=== PATIENT | female | born 1990 | race Two or more races ===

== ENCOUNTER 2023-12-22 20:20 | Outpatient (REF) | payer OTHER, SELFPAY ==
[2023-12-27 18:41] LABS: Age Gdln ACOG Testing Note (.); HPV Aptima Negative (Negative); IGP, Aptima HPV, rfx 16/18,45 Note (.)
== END 2023-12-22 20:21 | disposition home or self-care (01) ==
LOC: LAB 20:20
PROVIDERS: Visit Provider Physician Assistant
DX: Z01.419 Encounter for gynecological examination (general) (routine) without abnormal findings (principal)
CPT/HCPCS: 87624; G0145

== ENCOUNTER 2024-03-14 10:08 | Outpatient (OUT) | payer OTHER, SELFPAY ==
[2024-03-15 15:09] LABS: Measles Antibodies, IgG >300.0 AU/mL (Immune >16.4); Mumps Abs, IgG 9.6 AU/mL (Immune >10.9); Rubella Antibodies, IgG 5.64 index (Immune >0.99)
[2024-03-16 17:10] LABS: QuantiFERON-TB Gold Plus Negative (Negative)
== END 2024-03-14 10:09 | disposition home or self-care (01) ==
PROVIDERS: Visit Provider Family Medicine
DX: Z00.00 Encounter for general adult medical examination without abnormal findings (principal); Z20.1 Contact with and (suspected) exposure to tuberculosis
CPT/HCPCS: 36415; 86317; 86480; 86615; 86735; 86762; 86765